=== PATIENT | female | born 1945 | race Caucasian/White ===

== ENCOUNTER 2016-06-17 07:36 | Outpatient (CLI) ==
--- NOTE | 2016-06-17 08:55 | MAMMO ---
EXAM: Bilateral digital screening mammogram History: Screening Comparison: Bilateral mammogram 06/17/2015 Findings: MLO and CC views of bilateral breasts demonstrate scattered fibroglandular breast parench yma. Stable benign bilateral breast calcifications. There are no dominant masses, no suspicious mi crocalcifications and no architectural distortions Impression: Benign stable mammogram. Recommend followup routine screening mammography in 1 year. BIRADS 2
== END 2016-06-17 07:37 | disposition home or self-care (01) ==
LOC: RAD 07:36
PROVIDERS: ATTEND Family Medicine
DX: Z12.31 Encounter for screening mammogram for malignant neoplasm of breast (principal)

== ENCOUNTER 2017-06-22 08:45 | Outpatient (CLI) ==
--- NOTE | 2017-06-23 11:42 | MAMMO ---
EXAM: Bilateral digital screening mammogram (2-D and 3-D) History: Screening Comparison: Bilateral mammogram 06/17/2016 Findings: MLO and CC views of bilateral breasts demonstrate scattered fibroglandular breast parenchy ma. CAD was reviewed by the radiologist. Tomosynthesis was performed. Stable benign bilateral vasc ular and scattered calcifications. There are no dominant masses, no suspicious microcalcifications a nd no architectural distortions Impression: Benign stable mammogram. Recommend followup routine screening mammography in 1 year. BIRADS 2
== END 2017-06-22 08:46 | disposition home or self-care (01) ==
LOC: RAD 08:45
PROVIDERS: ATTEND Family Medicine
DX: Z12.31 Encounter for screening mammogram for malignant neoplasm of breast (principal)
CPT/HCPCS: 77067

== ENCOUNTER 2018-08-23 07:56 | Outpatient (CLI) | payer OTHER ==
--- NOTE | 2018-08-24 09:57 | MAMMO ---
EXAM: Digital screening mammogram with tomosynthesis HISTORY: Screening COMPARISON: 06/22/2017 FINDINGS: Digital MLO and CC views of the right and left breast were performed. Tomosynthesis was performed. Computer aided detection utilized. There are scattered fibroglandular densities. Benign bilateral calcifications. There is no evidence for mass, asymmetry, distortion, or suspicious calci fications in either breast. IMPRESSION: 1. No evidence of malignancy in the right or left breast. 2. Annual screening mammogram is recommended in one year. BIRADS category 2, benign.
== END 2018-08-23 07:57 | disposition home or self-care (01) ==
LOC: RAD 07:56
PROVIDERS: ATTEND Family Medicine
DX: Z12.31 Encounter for screening mammogram for malignant neoplasm of breast (principal)

== ENCOUNTER 2025-03-07 13:33 | Inpatient (IN) ==
--- NOTE | 2025-03-07 14:11 | DI ---
EXAM: CHEST RADIOGRAPH TECHNIQUE: Single frontal chest radiograph. HISTORY: Dyspnea. History of COPD. COMPARISON: 70 08/29/21. FINDINGS: Lungs are clear but hyperinflated and hyperlucent. No nodule or mass. There is atelectatic type change at the lung base bilaterally. Trace effusions cannot be excluded. Midline sternotomy is stable. Heart is borderline to mildly prominent. Mild biapical pleural thickening and/or scar. Surgical clips are upper abdomen on the right. Osteopenia. Degenerative change of the spine. Significant acute bony finding is not seen. There is no pneumothorax. IMPRESSION: 1. Heart is upper limits of normal to borderline prominent. There is midline sternotomy. 2. Lungs are hyperinflated and hyperlucent with chronic changes. There is bibasilar atelectasis and Possible trace effusions. Well-defined infiltrate is felt less likely. Details, as above.
--- NOTE | 2025-03-07 14:16 | ED.PDOC ---
General HPI ED Provider: Dr. PARK OJEDA MD Chief Complaint: Abnormal Labs Stated Complaint: Patient is a 80-year-old female that is being sent in by her [facility] facility due to a potassium level of around 2.5. Patient states that she feels generally weak across her whole body and has also been having worsening shortness of breath beyond her baseline for the last 2 days. She denies any fevers or productive cough. Denies any chest pain or pleuritic pain. She denies any orthopnea. She does report that she has generalized pain across her body but this has been present ever since she had an open heart surgery with 2 CABGs performed exactly 4 weeks ago. She has also had to be on 4 L of nasal cannula ever since this operation as well. Time Seen by Provider: 03/07/25 13:49 Mode of Arrival: Ambulance Information Source: Patient, Group Home and EMT Exam Limitations: No limitations Nursing and Triage Documentation Reviewed and Agree: Yes Opioid Naive vs. Tolerant What is Opioid Naive?: *Opioid Naive implies the patient is not already taking opioids or not chronically receiving opioids on a daily basis. *PRN dosing is not "usually" associated with tolerance. *Patients are at higher risk of over-sedation and aspiration. What is Opioid Tolerant?: *Opioid Tolerance implies less than the expected response to an opioid. *Acquired tolerance is defined by the patient taking 60mg of oral morphine daily (or equianalgesic dose of another opioid) for 1 week or more. *Often associated with chronic pain. *May take more than usual dose to achieve desired pain control. Review of Systems Review Of Systems Constitutional: Reports Weakness; Denies Chills or Fever Respiratory: Reports Shortness of Breath; Denies Cough, Orthopnea, Stridor or Wheezing Cardiac: Reports No symptoms GI: Reports No symptoms : Reports No symptoms Musculoskeletal: Reports No symptoms Skin: Reports No symptoms Neurological: Reports No symptoms Physical Exam Physical Exam Appearance: Reports Well-appearing and Other (Patient is smiling conversational but does appear to develop shortness of breath if speaking for more than 1-2 sentences) Ill-appearing: None Pain Distress: None Eyes: Reports Conjunctiva clear Neck: Supple Respiratory: Reports Airway patent, Breath sounds clear, Breath sounds diminished and Respirations nonlabored; Denies Crackles, Rhonchi, Wheezes or Retractions Cardiovascular: Reports RRR, Pulses normal and Other (Negative for any lower extremity edema) GI/: Reports Soft and Nontender Musculoskeletal: Reports Normal strength Skin: Reports Warm and Dry Neurological: Reports Alert and Oriented Interpretation EKG Interpretation EKG Interpretation By: ED Physician Time of EKG #1: 14:08 Rate: Normal Rhythm: Sinus Ectopy: PVCs [place]: NL ST Segment: Normal Interpretation: Sinus rhythm with occasional PVC but no findings concerning for ACS Physician Progress Note Physician Progress Note: Patient is a 80-year-old female is presenting to the emergency department for evaluation of generalized weakness and acute dyspnea Patient's generalized weakness is likely explainable by her hypokalemia which was a 2.5 at the outside facility. We did repeat this value today to confirm it and it was 2.4. Will therefore initiate treatment with 20 mill equivalents of IV potassium as the patient states that she is unable to take oral potassium without vomiting. There were no other significant electrolyte abnormalities found. Patient does note that she has had a recurrent issue with hypokalemia that her recent hospitalist her prior admission several weeks ago was unable to find the underlying cause of. Patient was also endorsing shortness of breath although she is at her baseline oxygen requirements of 4 L nasal cannula at this time. Differential diagnosis was ACS versus dysrhythmia versus pneumonia versus pulmonary embolism. Troponin was within normal limits which effectively rules out ACS and the ECG did not show any findings of ACS nor any dysrhythmia. See interpretation section for full interpretation. Chest plain film imaging as interpreted by me did not show any findings that are overtly consistent with pneumonia although some findings were suggestive over the right lower lobe, however, I favor this is likely atelectasis given that she has no productive cough, fever, or leukocytosis. D- dimer was positive and we therefore escalated our workup for possible pulmonary embolism with a CT PE study. This was interpreted by the radiologist as not having any findings consistent for pulmonary embolism at this time. BNP was elevated however the patient is not aware of any established diagnosis of heart failure. Furthermore she does have some slight cardiomegaly present on her chest plain film imaging. I should note though that she has no signs of fluid overload on examination such as lower extremity edema or JVD. I wish to have the patient admitted to the hospital for further potassium repletion as well as echo study to be performed given her possible [place] heart failure. Patient was amenable to this plan. Hospitalist accepted the patient after we discussed the case and she will be admitted to observation with telemetry. Course Course 03/07/25 14:20 03/07/25 14:20 Orders, Labs, Meds: Lab Review 03/07/25 14:20 WBC 8.40 RBC 3.45 L Hgb 10.3 L Hct 34.7 L MCV 100.6 H MCH 29.9 MCHC 29.7 L RDW Coeff of Karo 16.4 H Plt Count 182 Immature Gran % (Auto) 0.4 Neut % (Auto) 79.5 H Lymph % (Auto) 13.9 Beckham % (Auto) 4.8 Eos % (Auto) 1.0 Baso % (Auto) 0.4 Neut # (Auto) 6.7 Lymph # (Auto) 1.2 Beckham # (Auto) 0.4 Eos # (Auto) 0.1 Baso # (Auto) 0.0 Immature Gran # (Auto) 0.0 Sodium 136.7 Potassium 2.46 L* Chloride 91.7 L Carbon Dioxide 38.9 H Anion Gap 8.56 BUN 11.8 Creatinine 0.98 Estimated GFR (MDRD) 55.00 BUN/Creatinine Ratio 12.04 Glucose 135.5 H Calcium 8.38 L Magnesium 1.84 Total Bilirubin 0.53 AST 64.4 H ALT 44.2 H Alkaline Phosphatase 93.4 Troponin I 0.036 NT-Pro-B Natriuret Pep 2840 H Total Protein 6.84 Albumin 3.11 L Globulin 3.73 Albumin/Globulin Ratio 0.83 Procalcitonin < 0.05 D-Dimer 2944.36 H Orders Category Date Time Status PLACE PATIENT OBSERVATION .TO MEDSURG (MONITORED BED ADMISSION 03/07/25 17:14 Active ) PLACE PATIENT OBSERVATION .TO MEDSURG (MONITORED BED ADMISSION 03/07/25 17:39 Active ) EKG-(ED & IP/OBS ONLY) Stat CARDIO 03/07/25 13:49 Completed INCENTIVE SPIROMETRY Routine CARDIO 03/07/25 17:41 Ordered OXYGEN Routine CARDIO 03/07/25 17:39 Ordered ACTIVITY .Up With Assistance CARE 03/07/25 17:39 Active INTAKE & OUTPUT Q8HR CARE 03/07/25 17:14 Active INTAKE & OUTPUT Q8HR CARE 03/07/25 17:39 Active IP: INSERT SALINE LOCK ONCE CARE 03/07/25 17:14 Active NPO REMINDER: IMAGING ONCE CARE 03/07/25 15:01 Completed TELEMETRY MONITORING TELE CARE 03/07/25 17:14 Active TELEMETRY MONITORING TELE CARE 03/07/25 17:39 Active VITAL SIGNS Q4HR CARE 03/07/25 17:39 Active VITAL SIGNS Q8HR CARE 03/07/25 17:14 Active CARDIAC DIET DIETARY 03/07/25 Dinner Ordered CBC W/ AUTO DIFF DAILY@0600 LAB 03/08/25 06:00 Ordered CBC W/ AUTO DIFF DAILY@0600 LAB 03/09/25 06:00 Ordered CBC W/ AUTO DIFF Stat LAB 03/07/25 14:20 Completed CMP [COMPREHENSIVE METABOLIC PANEL] Stat LAB 03/07/25 14:20 Completed COMPREHENSIVE METABOLIC PANEL DAILY@0600 LAB 03/08/25 06:00 Ordered COMPREHENSIVE METABOLIC PANEL DAILY@0600 LAB 03/09/25 06:00 Ordered D-DIMER Stat LAB 03/07/25 14:20 Completed MAGNESIUM Stat LAB 03/07/25 14:20 Completed NT-PROBNP(ED) Stat LAB 03/07/25 14:20 Completed PROCALCITONIN Routine LAB 03/07/25 14:20 Completed TROPONIN I Stat LAB 03/07/25 14:20 Completed Acetaminophen [Tylenol] Meds 03/07/25 17:39 Active 650 mg PO Q4H PRN Iodixanol [Visipaque 320 mg/ml 100Ml] Meds 03/07/25 15:08 Discontinued 100 ml IVP ONCE ONE Magnesium Sulfate in Water [Magnesium Sulf 2 G/50 ml Meds 03/07/25 17:39 Active Bag] 2 gm in 50 ml IV ONCE Potassium Chloride [Potassium Chl 10% Oral Nadine] Meds 03/07/25 17:39 Discontinued 40 meq PO ONCE ONE Potassium Chloride [Potassium Chloride 20 Meq/100 ml Meds 03/07/25 15:00 Discontinued Premix] 20 meq in 100 ml IV ONCE Potassium Chloride [Potassium Chloride 20 Meq/100 ml Meds 03/07/25 17:39 Active Premix] 20 meq in 100 ml IV ONCE Sodium Chloride 0.9% [Sodium Chloride] 500 ml Meds 03/07/25 15:00 Discontinued IV BOLUS RESUSCITATION STATUS Routine OTHERS 03/07/25 17:14 Ordered CTA CHEST PE PROTOCOL Stat RADS 03/07/25 15:00 Completed CXR [CHEST, 1V AP ONLY] Stat RADS 03/07/25 13:49 Completed Medications Generic Name Dose Route Start Last Admin Trade Name Freq PRN Reason Stop Dose Admin Acetaminophen 650 mg 03/07/25 17:39 Acetaminophen 325 Mg Tablet PO Q4H PRN Mild Pain MAGNESIUM SULFATE IN WATER 2 gm in 50 mls @ 25 mls/hr 03/07/25 17:39 Magnesium Sulf 2 G/50 Ml Bag IV 03/07/25 19:38 ONCE ONE Potassium Chloride 20 meq in 100 mls @ 50 mls/hr 03/07/25 17:39 Potassium Chloride 20 Meq/100 Ml Premix IV 03/07/25 19:38 ONCE ONE Discontinued Medications Generic Name Dose Route Start Last Admin Trade Name Freq PRN Reason Stop Dose Admin Potassium Chloride 20 meq in 100 mls @ 50 mls/hr 03/07/25 15:00 03/07/25 16:33 Potassium Chloride 20 Meq/100 Ml Premix IV 03/07/25 16:59 50 mls/hr ONCE ONE Administration Sodium Chloride 500 mls @ 250 mls/hr 03/07/25 15:00 03/07/25 16:34 Sodium Chloride IV 03/07/25 16:59 75 mls/hr BOLUS ONE Administration Iodixanol 100 ml 03/07/25 15:08 03/07/25 15:33 Iodixanol 320 Mg/Ml 100ml IVP 03/07/25 15:09 100 ml ONCE ONE Administration Potassium Chloride 40 meq 03/07/25 17:39 Potassium Chloride 40 Meq/30 Ml Cup PO 03/07/25 17:40 ONCE ONE Vital Signs: Temp Pulse Resp BP Pulse Ox 03/07/25 13:37 98.2 F 92 15 128/68 99 Discharge Plan Discharge Patient Disposition: PLACED OBSERVATION Discharge Problem: Chronic hypokalemia Did you review [place] IT APPLICATION SUPPORT ANALYST for ALL controlled substances?: Not Applicable ED Provider: PARK OJEDA Condition: Stable
[2025-03-07 14:25] LABS: IMMATURE GRANULOCYTE # (AUTO) 0.0 (0.0-1.0); IMMATURE GRANULOCYTE % (AUTO) 0.4 % (0.0-5.0); RDW COEFFICIENT OF VARIATION 16.4 % (11.6-14.8)
[2025-03-07 14:37] LABS: CREATININE 0.98 mg/dL (0.60-1.30)
[2025-03-07] MEDS: VISIPAQUE 320 MG/ML 100ML IVP ONE (15:33)
--- NOTE | 2025-03-07 16:09 | CT ---
CTA CHEST PE PROTOCOL INDICATION: 80-year-old female patient with dyspnea COMPARISON: Chest radiograph 03/07/[address] abdomen pelvis 10/14/2021 TECHNIQUE: Axial CT pulmonary angiogram of the chest following intravenous contrast administration timed for optimal opacification of the pulmonary arterial tree. One or more of the following dose reduction techniques were used: Automated exposure control, adjustment of the mA and/or kV according to patient size, use of iterative reconstruction technique. 3D/MIP/VR: Performed. IV Contrast: Administered. FINDINGS: Mild emphysema. Moderate to severe consolidation and volume loss of the right lower lobe. Mild consolidation mild volume loss of the left lower lobe. Consolidation in the lingula and mild of the posterior left upper lobe further superiorly. Mucous plugging of lingular airways. Mucous plugging of distal left lower lobe airways. Effacement of proximal right lower lobe airways. No pneumothorax. No mediastinal or retrocrural lymphadenopathy. No hilar inferior cervical internal mammary or cardiophrenic angle lymphadenopathy. The heart is mildly enlarged. Small pericardial effusion. Small pleural effusions. Cholecystectomy. Mild right moderate left adrenal gland thickening nonspecific. Colonic diverticulosis. 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 There is also severe disease in the right innominate artery and severe stenosis versus occlusion of the proximal right subclavian artery. The right vertebral artery may have severe stenoses and/or occlusion. No pulmonary embolism within the main pulmonary artery to some of the segmental branches with other segmental and subsegmental branches are suboptimally evaluated secondary to motion artifac t. 3.2 cm ectatic descending thoracic aorta. No thoracic aortic aneurysm. Median sternotomy. Spondylosis osteoarthrosis. T6-T7 compression fractures that is post vertebroplasty procedures. L2 superior endplate mild anterior wedging compression morphology is chronic. IMPRESSION: No pulmonary embolism within the main pulmonary artery to some of the segmental branches with other segmental and subsegmental branches are suboptimally evaluated. Moderate to severe right lower lobe atelectasis and/or pneumonia. Atelectasis is likely secondary to combination of mucous plugging and passive atelectasis from the small right pleural effusion which is present. Mild emphysema. Mild consolidation of the lingula posterior left upper lobe posterior left lower lobe likely atelectatic. Mucous plugging of lingular airways. Small pericardial effusion. Small left pleural effusion. 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 3.2 cm ectatic descending thoracic aorta. All CT scans are performed using dose optimization techniques as appropriate to the performed exam and include at least one of the following: Automated exposure control, adjustment of the mA and/or kV according to size, and the use of iterative reconstruction technique.
[2025-03-07] MEDS: POTASSIUM CHLORIDE 20 MEQ/100 ML PREMIX 20 MEQ/100 ML BAG IV ONE ×2 (16:33→23:00)
[2025-03-07] MEDS: SODIUM CHLORIDE 500 ML IV ONE (16:34)
[2025-03-07] MEDS: TYLENOL PO PRN (20:27)
[2025-03-07] MEDS: MAGNESIUM SULF 2 G/50 ML BAG 2 GM/50 ML PIGGYBACK IV ONE (20:43)
[2025-03-07] MEDS: POTASSIUM CHL 10% ORAL SOL ONE (21:30)
[2025-03-07] MEDS: ZOFRAN TAB PO PRN (21:37)
[2025-03-07] MEDS ORDERED: XANAX PO PRN (22:53)
[2025-03-07] MEDS ORDERED: DUONEB NEB PRN (22:58)
[2025-03-07] MEDS: POTASSIUM CHL 10% ORAL SOL PO ONE (23:02)
[2025-03-07] MEDS: CRESTOR PO SCH (23:20)
[2025-03-08 02:02] VITALS: BMI 24.5
[2025-03-08 05:15] LABS: IMMATURE GRANULOCYTE # (AUTO) 0.0 (0.0-1.0); IMMATURE GRANULOCYTE % (AUTO) 0.2 % (0.0-5.0); RDW COEFFICIENT OF VARIATION 16.5 % (11.6-14.8)
[2025-03-08 05:31] LABS: CREATININE 1.04 mg/dL (0.60-1.30)
[2025-03-08] MEDS: POTASSIUM CHL 10% ORAL SOL PO ONE (08:32)
[2025-03-08] MEDS: POTASSIUM CHLORIDE 20 MEQ/100 ML PREMIX 20 MEQ/100 ML BAG IV ONE (08:32)
--- NOTE | 2025-03-08 09:24 | PCM ---
Date of Service Date Seen by Provider: 03/08/25 Time Seen by Provider: 09:00 Admit Day/Time Admission Date: 03/07/25 Admission Time: 17:14 Reason for Admission Chief Complaint: HYPOKALEMIA Hospital Provider Hospital Provider: HALE[facility] FONG [facility] History of Present Illness History of Present Illness: Patient is a 80 year old female from [facility] with pmhx of AAA, bilateral carotid artery stenosis, hypertension, hyperlipidemia, CKD, recent CABG on 01/30, s/p right paracentesis on 02/21, and recent hospitalization due to pneumonia who presents from [facility] for abnormal labs. Patient has been struggling with low potassium since her CABG. She has been unable to tolerate PO potassium. Labs ordered by [facility] showed K+ level of 2.5. Repeat in ER was 2.4. She was given an oral dose and IV. Patient also was noted to have elevated BNP and d dimer. CTA performed showing multiple areas of atelectasis, worst in RLL, could also be pneumonia. WBC count normal, procal negative. Pt recently finished abx for pneumonia. Patient admitted to [facility]. Reviewing records: Patient was at [facility] 01/30-02/05 due to CABG by Dr. Castillo. She was discharged home with home health. On sternal precautions. Followed up with CT surgery outpatient on 02/19, noted to be more SOB and had a pleural effusion on right side. Had planned thoracentesis on 02/21. Followed up again outpatient with CT surgery on 02/23 for recheck, patient's breathing had improved but she was very weak and directed to ER. Then she was admitted at [facility] from 02/23-03/02. During this hospitalization she was treated for low potassium, and pneumonia. CT surgery was consulted and there was no indication for repeat thoracentesis at that time. She also had a mild LOREN. She was discharged on augmentin. Metoprolol appears to be held upon discharge as well. Patient today is very tearful and anxious about returning to the local [facility] for rehab. She states she has not gotten out of bed hardly while there for the past week. "They've just been changing my diaper". She states she's not been eating because she does not like the food. She states she refuses to return and when she is discharged from this facility she will just go home, despite not feeling ready to go home. She is requesting to be admitted to our swingbed program to continue her skilled therapy. Discussed with her with it being the holiday, there is no watch case polisher or therapy today, but it can be discussed tomorrow morning. She states prior to her CABG she was living at home with her and was independent, still driving, etc. Case Discussed With Case Discussed With: Patient's case was discussed with the ER Physicians, Dr. Alamo. 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 - Compression of vein (ICD-10) Gall bladder disease K82.9 - Disease of gallbladder, unspecified (ICD-10) Surgical History History of back surgery Z98.890 - Other specified postprocedural states (ICD-10) S/P CABG x 2 Z95.1 - Presence of aortocoronary bypass graft (ICD-10) Family History FATHER Heart attack Mother Diabetes BROTHER Liver disease Alzheimer disease Social History Smoking and tobacco status: Former smoker Smoking status stop date: 11/10/24 Alcohol intake: never Substance use type: does not use Nneka/orthodox: PENTECOSTALISM Special nneka needs: No Agree to transfusion: Yes Adopted: No Caregiver/support person: No Foster care: No Household members: spouse Housing: house Marital status: M Lives independently: Yes Daycare: no daycare Number of children: 3 Number of grandchildren: 6 Highest education level completed: 11th grade Financial difficulty paying for basics: not very hard alf: Yes (At [place] since 02/28/25) Current occupational status: retired Do you think of yourself as: straight/heterosexual Current gender identity: female Seatbelt use: always Drives intoxicated or rides with intoxicated route delivery service driver: No Current diet type/program: regular Water heater temperature set < 120 degrees: Yes Working smoke detector in home: Yes Fire extinguisher in home: Yes Carbon monoxide detector in home: Yes Firearms in home: Yes Firearms unloaded and locked: Yes Allergies Allergies Allergy/AdvReac Type Severity Reaction Status Date / Time potassium AdvReac Intermediate Vomiting Verified 03/07/25 14:02 Current Medications Home Medications Acetaminophen (Acetaminophen 325 Mg Tablet) 650 mg PO Q4H PRN PRN Reason: Mild Pain Last Admin: 03/07/25 20:27 Dose: 650 mg Hydrocodone Bitart/Acetaminophen (Hydrocodone Bit/Acetaminophen 7.5/325 Mg Tablet) 1 tab PO Q6H PRN PRN Reason: Pain Albuterol/Ipratropium (Ipratropium/Albuterol Vial.Neb) 3 ml NEB RTQ4H PRN PRN Reason: Wheezing Alprazolam (Alprazolam 0.25 Mg Tablet) 0.25 mg PO Q8H PRN PRN Reason: Anxiety Ondansetron HCl (Ondansetron Hcl 4 Mg Tablet) 4 mg PO Q6H PRN PRN Reason: Nausea / Vomiting Last Admin: 03/07/25 21:37 Dose: 4 mg Rosuvastatin Calcium (Rosuvastatin Calcium 10 Mg Tablet) 40 mg PO BEDTIME VERONICA alendronate 70 mg tablet 70 mg PO WEEKLY 03/07/25 [History Confirmed 03/07/25] alprazolam 0.25 mg tablet 0.25 mg PO Q8H PRN anxiety 03/07/25 [History Confirmed 03/07/25] aspirin 81 mg capsule 81 mg PO DAILY 03/07/25 [History Confirmed 03/07/25] bisacodyl 10 mg rectal suppository 10 mg WI DAILY PRN constipation 03/07/25 [History Confirmed 03/07/25] clopidogrel 75 mg tablet 75 mg PO DAILY 03/07/25 [History Confirmed 03/07/25] ergocalciferol (vitamin D2) 1,250 mcg (50,000 unit) capsule (Vitamin D2) 50,000 unit PO WEEKLY 03/07/25 [History Confirmed 03/07/25] ezetimibe 10 mg tablet 10 mg PO DAILY 03/07/25 [History Confirmed 03/07/25] guaifenesin 1,200 mg tablet, extended release 12 hr (Mucinex) 1,200 mg PO BID 03/07/25 [History Confirmed 03/07/25] hydrocodone 7.5 mg-acetaminophen 325 mg tablet 1 tab PO Q6H PRN severe pain 03/07/25 [History Confirmed 03/07/25] ipratropium 0.5 mg-albuterol 3 mg (2.5 mg base)/3 mL nebulization soln 3 ml inhalation Q4H PRN shortness of breath or wheezing 03/07/25 [History Confirmed 03/07/25] mupirocin calcium 2 % topical cream 1 applic topical BID 03/07/25 [History Confirmed 03/07/25] pantoprazole 40 mg tablet,delayed release 40 mg PO DAILY 03/07/25 [History Confirmed 03/07/25] polyethylene glycol 3350 17 gram/dose oral powder (ClearLax) 8.5 g PO DAILY PRN constipation 03/07/25 [History Confirmed 03/07/25] rosuvastatin 40 mg tablet 40 mg PO DAILY 03/07/25 [History Confirmed 03/07/25] sennosides 8.6 mg-docusate sodium 50 mg tablet (Senna with Docusate Sodium) 2 tab-cap PO BID 03/07/25 [History Confirmed 03/07/25] Opioid Naive vs. Tolerant Does Patient Take Opioids?: No Is Patient Opioid Naive?: Yes What is Opioid Naive?: *Opioid Naive implies the patient is not already taking opioids or not chronically receiving opioids on a daily basis. *PRN dosing is not "usually" associated with tolerance. *Patients are at higher risk of over-sedation and aspiration. Is Patient Opioid Tolerant?: No What is Opioid Tolerant?: *Opioid Tolerance implies less than the expected response to an opioid. *Acquired tolerance is defined by the patient taking 60mg of oral morphine daily (or equianalgesic dose of another opioid) for 1 week or more. *Often associated with chronic pain. *May take more than usual dose to achieve desired pain control. Review of Systems Constitutional: Reports Fatigue, Weakness and Loss of appetite; Denies Fever Head: Reports Normocephalic and Atraumatic Cardiovascular: Denies Chest pain, Chest Pressure or Edema Respiratory: Reports Shortness of air; Denies Cough Gastrointestinal: Denies Nausea, Vomiting, Diarrhea, Abdominal pain or Melena Genitourinary: Denies Dysuria or Frequency Neurological: Denies Headache, Dizziness or Syncope Physical examination Most Recent Vital Signs: Most Recent Vital Signs Temperature 97.2 F L 03/08/25 05:48 Temperature Source Tympanic 03/08/25 02:00 Temperature Source Infrared 03/07/25 13:37 Pulse Rate 81 03/08/25 05:48 Respiratory Rate 14 03/08/25 05:48 Blood Pressure 82/53 L 03/08/25 05:48 Blood Pressure Mean 62 03/08/25 05:48 Blood Pressure Right Arm 110/67 03/07/25 20:11 Blood Pressure Location Right Arm 03/08/25 05:48 Blood Pressure Position Supine 03/08/25 05:48 O2 Sat by Pulse Oximetry 95 03/08/25 05:48 Oxygen Delivery Method Nasal Cannula 03/08/25 09:00 Oxygen Flow Rate 3 03/08/25 05:48 Height 5 ft 03/07/25 20:11 Weight 57.1 kg 03/07/25 20:11 Telemetry Type Remote Telemetry 03/08/25 07:00 Telemetry Monitoring Continues 03/08/25 07:00 Telemetry Heart Rate 77 03/08/25 07:00 Telemetry SPO2 98 03/08/25 07:00 EKG WI Interval 0.17 03/08/25 07:00 EKG QRS Interval 0.08 03/08/25 07:00 Telemetry Strip Reading NSR with PVC's/PAC 03/08/25 07:00 Appearance: Positive No Apparent Distress and Alert and Oriented x3 Skin: Positive [place], Warm and Good Turgor HEENT: Positive Normocephalic and Atraumatic Neck: Positive Supple and Midline Trachea Chest/Lungs: Positive Clear to Auscultation Bilaterally; Negative Rales, Rhonci or Wheezes Heart: Positive RRR GI/: Positive Soft, Nontender, Bowel Sounds Normal and No Distention Extremities: Negative Edema Neurological: Positive Cranial Nerves Intact, Alert and Oriented; Negative Muscle Strength 5/5 in Upper and Lower Extremities Bilaterally (+generally weak and deconditioned ) Psychiatric: Positive Oriented x4, Appropriate Mood and Appropriate Affect Additional Findings: +sternal incision c/d/i, healing very well. RLE incisions are also c/d/i, scabbed over. Labs This Visit Labs This Visit: Labs This Visit 03/07/25 03/08/25 14:20 04:58 WBC 8.40 5.56 RBC 3.45 L 3.20 L Hgb 10.3 L 9.4 L Hct 34.7 L 32.9 L MCV 100.6 H 102.8 H MCH 29.9 29.4 MCHC 29.7 L 28.6 L RDW Coeff of [place] 16.4 H 16.5 H Plt Count 182 186 Immature Gran % (Auto) 0.4 0.2 Neut % (Auto) 79.5 H 70.7 Lymph % (Auto) 13.9 21.0 [place] % (Auto) 4.8 5.2 Eos % (Auto) 1.0 2.2 Baso % (Auto) 0.4 0.7 Neut # (Auto) 6.7 3.9 Lymph # (Auto) 1.2 1.2 [place] # (Auto) 0.4 0.3 L Eos # (Auto) 0.1 0.1 Baso # (Auto) 0.0 0.0 Immature Gran # (Auto) 0.0 0.0 Hypochromasia 2+ Anisocytosis 1+ Sodium 136.7 136.7 Potassium 2.46 L* 3.08 L Chloride 91.7 L 96.5 L Carbon Dioxide 38.9 H 39.1 H Anion Gap 8.56 4.18 BUN 11.8 8.9 Creatinine 0.98 1.04 Estimated GFR (MDRD) 55.00 51.00 BUN/Creatinine Ratio 12.04 8.55 Glucose 135.5 H 125.9 H Calcium 8.38 L 7.86 L Magnesium 1.84 Total Bilirubin 0.53 0.37 AST 64.4 H 46.0 H ALT 44.2 H 37.3 H Alkaline Phosphatase 93.4 82.9 Troponin I 0.036 NT-Pro-B Natriuret Pep 2840 H Total Protein 6.84 6.08 L Albumin 3.11 L 2.78 L Globulin 3.73 3.30 Albumin/Globulin Ratio 0.83 0.84 Procalcitonin < 0.05 D-Dimer 2944.36 H Imaging Imaging: CTA CHEST PE PROTOCOL INDICATION: 80-year-old female patient with dyspnea COMPARISON: Chest radiograph 03/07/[address] abdomen pelvis 10/14/2021 TECHNIQUE: Axial CT pulmonary angiogram of the chest following intravenous contrast administration timed for optimal opacification of the pulmonary arterial tree. One or more of the following dose reduction techniques were used: Automated exposure control, adjustment of the mA and/or kV according to patient size, use of iterative reconstruction technique. 3D/MIP/VR: Performed. IV Contrast: Administered. FINDINGS: Mild emphysema. Moderate to severe consolidation and volume loss of the right lower lobe. Mild consolidation mild volume loss of the left lower lobe. Consolidation in the lingula and mild of the posterior left upper lobe further superiorly. Mucous plugging of lingular airways. Mucous plugging of distal left lower lobe airways. Effacement of proximal right lower lobe airways. No pneumothorax. No mediastinal or retrocrural lymphadenopathy. No hilar inferior cervical internal mammary or cardiophrenic angle lymphadenopathy. The heart is mildly enlarged. Small pericardial effusion. Small pleural effusions. Loan cystectomy. Mild right moderate left adrenal gland thickening nonspecific. Colonic diverticulosis. 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 There is also severe disease in the right innominate artery and severe stenosis versus occlusion of the proximal right subclavian artery. The right vertebral artery may have severe stenoses and/or occlusion. No pulmonary embolism within the main pulmonary artery to some of the segmental branches with other segmental and subsegmental branches are suboptimally evaluated secondary to motion artifact. 3.2 cm ectatic descending thoracic aorta. No thoracic aortic aneurysm. Median sternotomy. Spondylosis osteoarthrosis. T6-T7 compression fractures that is post vertebroplasty procedures. L2 superior endplate mild anterior wedging compression morphology is chronic. IMPRESSION: No pulmonary embolism within the main pulmonary artery to some of the segmental branches with other segmental and subsegmental branches are suboptimally evaluated. Moderate to severe right lower lobe atelectasis and/or pneumonia. Atelectasis is likely secondary to combination of mucous plugging and passive atelectasis from the small right pleural effusion which is present. Mild emphysema. Mild consolidation of the lingula posterior left upper lobe posterior left lower lobe likely atelectatic. Mucous plugging of lingular airways. Small pericardial effusion. Small left pleural effusion. 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 3.2 cm ectatic descending thoracic aorta. EXAM: CHEST RADIOGRAPH TECHNIQUE: Single frontal chest radiograph. HISTORY: Dyspnea. History of COPD. COMPARISON: 70 08/29/21. FINDINGS: Lungs are clear but hyperinflated and hyperlucent. No nodule or mass. There is atelectatic type change at the lung base bilaterally. Trace effusions cannot be excluded. Midline sternotomy is stable. Heart is borderline to mildly prominent. Mild biapical pleural thickening and/or scar. Surgical clips are upper abdomen on the right. Osteopenia. Degenerative change of the spine. Significant acute bony finding is not seen. There is no pneumothorax. IMPRESSION: 1. Heart is upper limits of normal to borderline prominent. There is midline sternotomy. 2. Lungs are hyperinflated and hyperlucent with chronic changes. There is bibasilar atelectasis and Possible trace effusions. Well-defined infiltrate is felt less likely. Details, as above. Imaging from [facility]: EXAMINATION: CT CHEST WO CONTRAST DIAGNOSTIC- HISTORY: pneumonia with effusion; E87.6-Hypokalemia; I95.0-Idiopathic hypotension; N17.9-Acute kidney failure, unspecified; Z74.09-Other reduced mobility In order to have a CT radiation dose as low as reasonably achievable Automated Exposure Control was utilized for adjustment of the mA and/or KV according to patient size. CT Dose DLP = 127.94 mGy.cm. (If there are multiple studies performed at the same time this represents the total dose). Images are stored in PACS per institutional protocol. Noncontrast chest CT. Axial, sagittal, and coronal sequences. COMPARISON: 01/25/2025. Cardiomegaly. Coronary artery calcification and thoracic aorta calcification. Median sternotomy. Normal size thoracic aorta. No mediastinal mass. Normal CT appearance of the thyroid gland. Dense consolidation of the RIGHT lower lobe compatible with pneumonia involving an area measuring approximately 7 x 6 x 5 cm. Trace amount of pleural fluid on both sides. Clear upper lobes. No pneumothorax or heart failure. IMPRESSION: 1. RIGHT lower lobe pneumonia. 2. Trace bilateral pleural effusion. This report was signed and finalized on 02/25/2025 4:[address] Fred Hernandez MD. Echo: Interpretation Summary Left ventricular systolic function is normal. Left ventricular ejection fraction appears to be 56 - 60%. Left ventricular wall thickness is consistent with severe concentric hypertrophy. The following left ventricular wall segments are hypokinetic: basal inferolateral and basal inferior. Left ventricular diastolic function is consistent with (grade II w/high LAP) pseudonormalization. Normal right ventricular cavity size and systolic function. Left atrium borderline dilatd. There is no hemodynamically significant valvular dysfunction appreciated. Estimated right ventricular systolic pressure from tricuspid regurgitation is mildly elevated (35-45 mmHg). Review Statement Review Statement: I have independently reviewed and interpreted the labs/EKGs/imaging that were ordered by the ER provider. I have reviewed all outside records that are available currently in our EMR including imaging/notes/labs from previous visits. Plan Plan: 1. Acute on chronic hypokalemia - Patient has tolerated the liquid potassium. Will give another 40 meq of liquid K and 20 mg K+ rider. Tele. Mag rider given last night. 2. RLL atelectasis vs pna - WBC count normal, no fever, procal negative, recently finished abx for pna. More likely atelectasis, especially with limited mobility. Incentive spirometer added. 3. Recent CABG - On 01/[address] Castillo. Sternal precautions. Continue home meds 4. Recent thoracentesis - On 02/21. No indication for repeat at this time. 5. GERD- Cont home meds 6. Osteoporosis - Will continue home med if patient stays longer term. DVT Prophylaxis: Lovenox Time Spent: Greater than 80 minutes spent with patient, 50% of the time spent with this patient was devoted to counseling and coordination of care. [facility] minutes spent discussing advance care planning. Disposition: Will make inpatient today as potassium continues to be low despite supplementation. Will discuss with IDT tomorrow regarding disposition home with home health vs swingbed. Pt is high risk of readmission and clinically not safe to return home at this time. Admit to: Obs to inpatient today Discussed Plan of Care with Dr. Enid Ingram. Follow ups: 03/19 Dr. Jeff Castillo, CT surgery 03/23 Dr. Thomas, cardiology Medications Medication Orders: Medications Ordered Category Date Time Status Acetaminophen [Tylenol] Meds 03/07/25 17:39 Active 650 mg PO Q4H PRN Alprazolam [Xanax] Meds 03/07/25 22:53 Active 0.25 mg PO Q8H PRN ANX Anxiety Hydrocodone Bit/Acetaminophen [[place] 7.5-325] Meds 03/07/25 22:53 Active 1 tab PO Q6H PRN PAIN Pain Ipratropium/Albuterol Neb [Duoneb] Meds 03/07/25 22:58 Active 3 ml NEB RTQ4H PRN Ondansetron HCl [Zofran Tab] Meds 03/07/25 21:06 Active 4 mg PO Q6H PRN Rosuvastatin Calcium [Crestor] Meds 03/08/25 21:00 Active 40 mg PO BEDTIME
[2025-03-08 11:13] LABS: CREATININE 1.12 mg/dL (0.60-1.30)
[2025-03-08] MEDS: CRESTOR PO SCH (20:42)
[2025-03-08] MEDS: NORCO 7.5-325 PO PRN (20:42)
[2025-03-09 05:50] LABS: IMMATURE GRANULOCYTE # (AUTO) 0.0 (0.0-1.0); IMMATURE GRANULOCYTE % (AUTO) 0.2 % (0.0-5.0); RDW COEFFICIENT OF VARIATION 16.9 % (11.6-14.8)
[2025-03-09 06:06] LABS: CREATININE 0.91 mg/dL (0.60-1.30)
[2025-03-09] MEDS ORDERED: ZETIA PO SCH (10:35)
[2025-03-09] MEDS ORDERED: PLAVIX PO SCH (10:35)
[2025-03-09] MEDS ORDERED: PROTONIX PO SCH (10:35)
[2025-03-09] MEDS ORDERED: MUCINEX PO SCH (10:35)
[2025-03-09] MEDS ORDERED: ASPIRIN CHEWABLE PO SCH (11:00)
[2025-03-09 11:19] VITALS: BP 148/69; PULSE 100; RESP 18; TEMP 98.3
--- NOTE | 2025-03-09 11:36 | DCSUM ---
Admission Date Admission Date: 03/07/25 Discharge Date Discharge Date: 03/09/25 Admission Diagnosis Admission Diagnosis: 1. Acute on chronic hypokalemia 2. RLL atelectasis vs pna Discharge Diagnosis Discharge Diagnosis: 1. Acute on chronic hypokalemia - resolved 2. RLL atelectasis vs pna 3. Recent CABG 4. Recent thoracentesis 5. GERD 6. Osteoporosis Hospital Provider Hospital Provider: HALEY FONG PA-C, [facility] Summary of History and Physical Summary of History and Physical: Patient is a 80 year old female from [facility] with pmhx of AAA, bilateral carotid artery stenosis, hypertension, hyperlipidemia, CKD, recent CABG on 01/30, s/p right paracentesis on 02/21, and recent hospitalization due to pneumonia who presents from [facility] for abnormal labs. Patient has been struggling with low potassium since her CABG. She has been unable to tolerate PO potassium. Labs ordered by [facility] showed K+ level of 2.5. Repeat in ER was 2.4. She was given an oral dose and IV. Patient also was noted to have elevated BNP and d dimer. CTA performed showing multiple areas of atelectasis, worst in RLL, could also be pneumonia. WBC count normal, procal negative. Pt recently finished abx for pneumonia. Patient admitted to [facility]. Reviewing records: Patient was at [facility] 01/30-02/05 due to CABG by Dr. Castillo. She was discharged home with home health. On sternal precautions. Followed up with CT surgery outpatient on 02/19, noted to be more SOB and had a pleural effusion on right side. Had planned thoracentesis on 02/21. Followed up again outpatient with CT surgery on 02/23 for recheck, patient's breathing had improved but she was very weak and directed to ER. Then she was admitted at [facility] from 02/23-03/02. During this hospitalization she was treated for low potassium, and pneumonia. CT surgery was consulted and there was no indication for repeat thoracentesis at that time. She also had a mild LOREN. She was discharged on augmentin. Metoprolol appears to be held upon discharge as well. Patient today is very tearful and anxious about returning to the local [facility] for rehab. She states she has not gotten out of bed hardly while there for the past week. "They've just been changing my diaper". She states she's not been eating because she does not like the food. She states she refuses to return and when she is discharged from this facility she will just go home, despite not feeling ready to go home. She is requesting to be admitted to our swingbed program to continue her skilled therapy. Discussed with her with it being the holiday, there is no human services case manager or therapy today, but it can be discussed tomorrow morning. She states prior to her CABG she was living at home with her and was independent, still driving, etc. Hospital Course Subjective: Patient's potassium replaced. She tolerated liquid potassium without any difficulty. Patient again expresses that she will not go back to the nursing [facility]. She requests to do the swingbed program here or be discharged to home. linen manager and therapy spoke with her. She participated with therapy. Has very low endurance. Will admit to swingbed program today. Patient and are very pleased by this. Appearance: Pleasant, No Apparent Distress and Alert HEENT: MMM and Supple CVS: Other (RRR, sternal incision c/d/i, does have some mild conversational dyspnea ) Abdomen: Soft, Non-Tender and No Distention Respiratory: No Accessory Muscle Use Extremities: No Edema Vital Signs: Most Recent Vital Signs Temperature 98.3 F 03/09/25 10:00 Temperature Source Temporal Artery Scan 03/09/25 10:00 Temperature Source Infrared 03/07/25 13:37 Pulse Rate 100 03/09/25 10:00 Respiratory Rate 18 03/09/25 10:00 Blood Pressure 148/69 H 03/09/25 10:00 Blood Pressure Mean 95 03/09/25 10:00 Blood Pressure Right Arm 110/67 03/07/25 20:11 Blood Pressure Location Left Arm 03/09/25 10:00 Blood Pressure Position Supine 03/09/25 05:07 O2 Sat by Pulse Oximetry 98 03/09/25 10:00 Oxygen Delivery Method Nasal Cannula 03/09/25 11:00 Oxygen Flow Rate 3 03/09/25 10:00 Height 5 ft 03/07/25 20:11 Weight 57.1 kg 03/07/25 20:11 Telemetry Type Remote Telemetry 03/09/25 07:00 Telemetry Monitoring Continues 03/09/25 07:00 Telemetry Heart Rate 80 03/09/25 07:00 Telemetry SPO2 100 03/09/25 07:00 EKG OK Interval 0.17 03/09/25 07:00 EKG QRS Interval 0.07 03/09/25 07:00 Telemetry Strip Reading SR with PVC's/PAC's 03/09/25 07:00 Imaging: CTA CHEST PE PROTOCOL INDICATION: 80-year-old female patient with dyspnea COMPARISON: Chest radiograph 03/07/[address] abdomen pelvis 10/14/2021 TECHNIQUE: Axial CT pulmonary angiogram of the chest following intravenous contrast administration timed for optimal opacification of the pulmonary arterial tree. One or more of the following dose reduction techniques were used: Automated exposure control, adjustment of the mA and/or kV according to patient size, use of iterative reconstruction technique. 3D/MIP/VR: Performed. IV Contrast: Administered. FINDINGS: Mild emphysema. Moderate to severe consolidation and volume loss of the right lower lobe. Mild consolidation mild volume loss of the left lower lobe. Consolidation in the lingula and mild of the posterior left upper lobe further superiorly. Mucous plugging of lingular airways. Mucous plugging of distal left lower lobe airways. Effacement of proximal right lower lobe airways. No pneumothorax. No mediastinal or retrocrural lymphadenopathy. No hilar inferior cervical internal mammary or cardiophrenic angle lymphadenopathy. The heart is mildly enlarged. Small pericardial effusion. Small pleural effusions. Cholecystectomy. Mild right moderate left adrenal gland thickening nonspecific. Colonic diverticulosis. 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 There is also severe disease in the right innominate artery and severe stenosis versus occlusion of the proximal right subclavian artery. The right vertebral artery may have severe stenoses and/or occlusion. No pulmonary embolism within the main pulmonary artery to some of the segmental branches with other segmental and subsegmental branches are suboptimally evaluated secondary to motion artifact. 3.2 cm ectatic descending thoracic aorta. No thoracic aortic aneurysm. Median sternotomy. Spondylosis osteoarthrosis. T6-T7 compression fractures that is post vertebroplasty procedures. L2 superior endplate mild anterior wedging compression morphology is chronic. IMPRESSION: No pulmonary embolism within the main pulmonary artery to some of the segmental branches with other segmental and subsegmental branches are suboptimally evaluated. Moderate to severe right lower lobe atelectasis and/or pneumonia. Atelectasis is likely secondary to combination of mucous plugging and passive atelectasis from the small right pleural effusion which is present. Mild emphysema. Mild consolidation of the lingula posterior left upper lobe posterior left lower lobe likely atelectatic. Mucous plugging of lingular airways. Small pericardial effusion. Small left pleural effusion. 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 3.2 cm ectatic descending thoracic aorta. EXAM: CHEST RADIOGRAPH TECHNIQUE: Single frontal chest radiograph. HISTORY: Dyspnea. History of COPD. COMPARISON: 70 08/29/21. FINDINGS: Lungs are clear but hyperinflated and hyperlucent. No nodule or mass. There is atelectatic type change at the lung base bilaterally. Trace effusions cannot be excluded. Midline sternotomy is stable. Heart is borderline to mildly prominent. Mild biapical pleural thickening and/or scar. Surgical clips are upper abdomen on the right. Osteopenia. Degenerative change of the spine. Significant acute bony finding is not seen. There is no pneumothorax. IMPRESSION: 1. Heart is upper limits of normal to borderline prominent. There is midline sternotomy. 2. Lungs are hyperinflated and hyperlucent with chronic changes. There is bibasilar atelectasis and Possible trace effusions. Well-defined infiltrate is felt less likely. Details, as above. Imaging from [facility]: EXAMINATION: CT CHEST WO CONTRAST DIAGNOSTIC- HISTORY: pneumonia with effusion; E87.6-Hypokalemia; I95.0-Idiopathic hypotension; N17.9-Acute kidney failure, unspecified; Z74.09-Other reduced mobility In order to have a CT radiation dose as low as reasonably achievable Automated Exposure Control was utilized for adjustment of the mA and/or KV according to patient size. CT Dose DLP = 127.94 mGy.cm. (If there are multiple studies performed at the same time this represents the total dose). Images are stored in PACS per institutional protocol. Noncontrast chest CT. Axial, sagittal, and coronal sequences. COMPARISON: 01/25/2025. Cardiomegaly. Coronary artery calcification and thoracic aorta calcification. Median sternotomy. Normal size thoracic aorta. No mediastinal mass. Normal CT appearance of the thyroid gland. Dense consolidation of the RIGHT lower lobe compatible with pneumonia involving an area measuring approximately 7 x 6 x 5 cm. Trace amount of pleural fluid on both sides. Clear upper lobes. No pneumothorax or heart failure. IMPRESSION: 1. RIGHT lower lobe pneumonia. 2. Trace bilateral pleural effusion. This report was signed and finalized on 02/25/2025 4:[address] Fred Hernandez MD. Echo: Interpretation Summary Left ventricular systolic function is normal. Left ventricular ejection fraction appears to be 56 - 60%. Left ventricular wall thickness is consistent with severe concentric hypertrophy. The following left ventricular wall segments are hypokinetic: basal inferolateral and basal inferior. Left ventricular diastolic function is consistent with (grade II w/high LAP) pseudonormalization. Normal right ventricular cavity size and systolic function. Left atrium borderline dilatd. There is no hemodynamically significant valvular dysfunction appreciated. Estimated right ventricular systolic pressure from tricuspid regurgitation is mildly elevated (35-45 mmHg). Lab Results Last 24 Hours: 03/09/25 05:13 WBC 8.87 RBC 3.27 L Hgb 9.7 L Hct 33.9 L MCV 103.7 H MCH 29.7 MCHC 28.6 L RDW Coeff of Kar[place] 16.9 H Plt Count 188 Immature Gran % (Auto) 0.2 Neut % (Auto) 71.4 Lymph % (Auto) 21.1 [place] % (Auto) 4.7 Eos % (Auto) 2.1 Baso % (Auto) 0.5 Neut # (Auto) 6.3 Lymph # (Auto) 1.9 [place]uleta # (Auto) 0.4 Eos # (Auto) 0.2 Baso # (Auto) 0.0 Immature Gran # (Auto) 0.0 Hypochromasia 2+ Anisocytosis Not present Sodium 136.4 Potassium 3.76 Chloride 97.3 L Carbon Dioxide 38.3 H Anion Gap 4.56 BUN 8.8 Creatinine 0.91 Estimated GFR (MDRD) 60.00 BUN/Creatinine Ratio 9.67 Glucose 120.5 H Calcium 7.74 L Total Bilirubin 0.39 AST 36.8 H ALT 33.6 Alkaline Phosphatase 77.0 Total Protein 6.07 L Albumin 2.79 L Globulin 3.28 Albumin/Globulin Ratio 0.85 Discharge Instructions Discharge Planning: Discharge Planning > [address] Enid Ingram. Discharge Plan Discharge Discharge Orders: Discharge Patient (ONCE); Ordered 03/09/25 Ordered By: HALEY FONG Activity Restrictions/Additional Instructions: DISCHARGE TO SWINGBED Patient Disposition: DISCH W/I HOSP TO SWING BD Prescriptions: No Action alendronate 70 mg tablet 70 mg PO WEEKLY clopidogrel 75 mg tablet 75 mg PO DAILY hydrocodone-acetaminophen 7.5-325 mg tablet 1 tab PO Q6H PRN (Reason: severe pain) pantoprazole 40 mg tablet,delayed release (DR/EC) 40 mg PO DAILY rosuvastatin 40 mg tablet 40 mg PO DAILY alprazolam 0.25 mg tablet 0.25 mg PO Q8H PRN (Reason: anxiety) aspirin 81 mg capsule 81 mg PO DAILY bisacodyl 10 mg suppository 10 mg OK DAILY PRN (Reason: constipation) ipratropium-albuterol 0.5 mg-3 mg(2.5 mg base)/3 mL solution for nebulization 3 ml inhalation Q4H PRN (Reason: shortness of breath or wheezing) guaifenesin [Mucinex] 1,200 mg tablet extended release 12hr 1,200 mg PO BID mupirocin calcium 2 % cream 1 applic topical BID Rx Instructions: Apply to scalp topically every day and night nurse for skin issues polyethylene glycol 3350 [ClearLax] 17 gram/dose powder 8.5 g PO DAILY PRN (Reason: constipation) sennosides-docusate sodium [Senna with Docusate Sodium] 8.6-50 mg tablet 2 tab-cap PO BID ergocalciferol (vitamin D2) [Vitamin D2] 1,250 mcg (50,000 unit) capsule 50,000 unit PO WEEKLY Rx Instructions: on ezetimibe 10 mg tablet 10 mg PO DAILY Did you review [place] [employer] for ALL controlled substances?: Not Applicable Discussed opioids are addictive and Narcan is available by prescription or from pharmacy.: No Condition: Stable
== END 2025-03-09 12:05 | disposition swing bed (61) | DRG 641 ==
LOC: ED 13:33 → MEDSURG B 13:33
PROVIDERS: ADMIT Hospitalist; ATTEND Physician Assistant